=== PATIENT | male | born 1950 ===

== ENCOUNTER 2017-10-29 19:01 | Emergency (ER) | payer MEDICARE ==
[2017-10-29 19:02] VITALS: BMI 26.6
[2017-10-29 19:27] VITALS: RESP 16; TEMP 98.5
[2017-10-29] MEDS ORDERED: Albuterol-Ipratrop 3 mg / 0.5 (3 ml) UD IH STA (19:34)
[2017-10-29] MEDS ORDERED: Promethazine 6.25 MG/5 ML CUP PO STA (19:35)
--- NOTE | 2017-10-29 19:39 | ED PDOC ---
Arrival/HPI - General Chief Complaint: Cough, Cold, Congestion Time Seen by Provider: 10/29/17 19:25 Historian: Patient - History of Present Illness Narrative History of Present Illness (Text): 67M c/o non-productive cough since last night. similar sx in august and pmd rx "biaxin" at that time which he took last night and today bs he had some left over. took dayquill without relief. Time/Duration: 24 hours Symptom Course: Unchanged Activities at Onset: Rest Context: Home Past Medical History - Provider Review Nursing Documentation Reviewed: Yes - Cardiac Hx Hypertension: Yes - Gastrointestinal Hx Gastrointestinal Ulcer: Yes - Psychiatric Hx Substance Use: No - Surgical History Hx Appendectomy: Yes Family/Social History - Physician Review Nursing Documentation Reviewed: Yes Family/Social History: Other (nc) Smoking Status: Former Smoker Hx Alcohol Use: No Hx Substance Use: No Allergies/Home Meds Allergies/Adverse Reactions: Allergies iodine Allergy (Mild, Verified 01/12/17 13:24) ANGIOEDEMA Penicillins Allergy (Mild, Verified 01/12/17 13:24) ANGIOEDEMA Home Medications: Home Meds Medication Instructions Recorded Confirmed Aspirin [Adult Low Dose Aspirin EC] 81 mg PO DAILY 01/12/17 01/12/17 Celecoxib [celeBREX] 200 mg PO DAILY 01/12/17 01/12/17 Clorazepate Dipotassium [Tranxene 7.5 mg PO DAILY 01/12/17 01/12/17 T-Tab] Cyclobenzaprine [Flexeril] 5 mg PO DAILY 01/12/17 01/12/17 Galantamine HBr [Galantamine HBR] 4 mg PO DAILY 01/12/17 01/12/17 Metoprolol Succinate [Metoprolol 50 mg PO DAILY 01/12/17 01/12/17 Succinate] Omeprazole [Omeprazole] 40 mg PO DAILY 01/12/17 01/12/17 Oxycodone HCl [Roxicodone] 15 mg PO DAILY 01/12/17 01/12/17 Pravastatin Sodium [Pravachol] 20 mg PO DAILY 01/12/17 01/12/17 Review of Systems - Physician Review All systems were reviewed & negative as marked: Yes - Review of Systems Constitutional: absent: Fatigue, Fevers Respiratory: Cough (chest hurts only w cough). absent: SOB, Sputum Gastrointestinal: absent: Abdominal Pain, Diarrhea, Vomiting Physical Exam Vital Signs Reviewed: Yes Vital Signs Temp Pulse Resp BP Pulse Ox 10/29/17 19:23 98.5 F 82 16 132/78 96 Appearance: Positive for: Well-Appearing, Non-Toxic, Comfortable Pain Distress: None Mental Status: Positive for: Alert and Oriented X 3 - Systems Exam Head: Present: Atraumatic Pupils: Present: PERRL Mouth: Present: Moist Mucous Membranes Respiratory/Chest: Present: Clear to Auscultation. No: Respiratory Distress, Accessory Muscle Use Cardiovascular: Present: Regular Rate and Rhythm Abdomen: No: Tenderness, Distention Lower Extremity: No: Edema Neurological: Present: GCS=15 Skin: Present: Warm, Dry Psychiatric: Present: Alert, Oriented x 3 Medical Decision Making ED Course and Treatment: 10/29/17 20:55 pt resting quietly, appears well, no distress. disc results, plan for rx, f/u, and rtr. - Lab Interpretations Lab Results: 10/29/17 20:15 10/29/17 20:15 Lab Results 10/29/17 20:15: Sodium 141, Potassium 3.6, Chloride 107, Carbon Dioxide 23, Anion Gap 14, BUN 10, Creatinine 1.3, Est GFR ( Amer) > 60, Est GFR (Non- Af Amer) 55, Random Glucose 97, Calcium 8.9, Total Bilirubin 0.6, AST 42, ALT 46 , Alkaline Phosphatase 50, Total Protein 7.7, Albumin 4.1, Globulin 3.6, Albumin /Globulin Ratio 1.2 10/29/17 20:15: WBC 10.1 D, RBC 6.81 H, Hgb 14.4, Hct 45.0, MCV 66.1 L, MCH 21.1 L, MCHC 32.0, RDW 15.1 H, Plt Count 120, Gran % 63.9, Lymph % (Auto) 22.1, [place] % (Auto) 10.2 H, Eos % (Auto) 3.4, Baso % (Auto) 0.4, Gran # 6.47, Lymph # 2.2, [place] # 1.0 H, Eos # 0.3, Baso # 0.04 I have reviewed the lab results: Yes - RAD Interpretation Radiology Orders: 10/29/17 19:34 CHEST PORTABLE [RAD] Stat - Medication Orders Current Medication Orders: Discontinued Medications Albuterol/Ipratropium (Duoneb 3 Mg/0.5 Mg (3 Ml) Ud) 3 ml IH ONCE STA Stop: 10/29/17 19:35 Last Admin: 10/29/17 20:00 Dose: 3 ml Ibuprofen (Motrin Tab) 600 mg PO STAT STA Stop: 10/29/17 19:35 Last Admin: 10/29/17 20:00 Dose: 600 mg MAR Pain/Vitals Document 10/29/17 20:00 OCS (Rec: 10/29/17 20:24 OCS [id number]) Pain Reassessment Is This A Pain ReAssessment? No Sleep Is patient sleeping during reassessment? No Presence of Pain Presence of Pain Yes Pain Scale Used Pain Scale Used Numeric Location Left, Right or Bilateral Bilateral Pain Location Body Site Chest Description Constant Promethazine HCl (Phenergan Syrup) 6.25 mg PO STAT STA Stop: 10/29/17 19:36 Last Admin: 10/29/17 20:00 Dose: 6.25 mg Disposition/Present on Arrival - Present on Arrival Any Indicators Present on Arrival: No History of DVT/PE: No History of Uncontrolled Diabetes: No Urinary Catheter: No History of Decub. Ulcer: No History Surgical Site Infection Following: None - Disposition Have Diagnosis and Disposition been Completed?: Yes Diagnosis: Community acquired pneumonia Disposition: HOME/ ROUTINE Disposition Time: 20:56 Patient Problems: Current Active Problems Problem Status Onset Community acquired pneumonia Acute Condition: STABLE Discharge Instructions (ExitCare): Community Acquired Pneumonia (ED) Additional Instructions: Please follow up with your doctor. Return to the ER for any worsening symptoms or for any other concerns. Prescriptions: levoFLOXacin [Levaquin] 750 mg PO DAILY #5 tab Promethazine [Phenergan Syrup] 6.25 mg PO Q12H PRN #50 ml PRN Reason: Cough Forms: [employer] (Yoruba)
[2017-10-29 20:27] LABS: BASO # 0.04 K/mm3 (0.0-2.0); BASO % 0.4 % (0.0-3.0); EOS # 0.3 (0.0-0.7); EOS % 3.4 % (1.5-5.0); GRAN # 6.47 (1.4-6.5); GRAN % 63.9 % (50.0-68.0); LYMPH # 2.2 (1.2-3.4); LYMPH % 22.1 % (22.0-35.0); MEAN CELL VOLUME 66.1 fl (80.0-105.0); MEAN CORPUSCULAR HEMOGLOBIN 21.1 pg (25.0-35.0); MONO % 10.2 % (1.0-6.0); PLATELET COUNT 120 10^3/uL (120.0-450.0); RED CELL DISTRIBUTION WIDTH 15.1 % (11.5-14.5); WHITE BLOOD COUNT 10.1 10^3/ul (4.5-11.0)
[2017-10-29 20:40] LABS: ALB/GLOB RATIO 1.2 (1.1-1.8); ALKALINE PHOSPHATASE 50 U/L (38-126); ALT/SGPT 46 U/L (7-56); AST/SGOT 42 U/L (17-59); BILIRUBIN,TOTAL 0.6 mg/dL (0.2-1.3); BLOOD UREA NITROGEN 10 mg/dL (7-21); CALCIUM 8.9 mg/dL (8.4-10.5); CARBON DIOXIDE 23 mmol/L (21-33); CHLORIDE 107 mmol/L (98-107); GFR AFRICAN-AMERICAN > 60; GLUCOSE,RANDOM 97 mg/dL (70-110); POTASSIUM 3.6 mmol/L (3.6-5.0); SODIUM 141 mmol/L (132-148); TOTAL PROTEIN 7.7 g/dL (5.8-8.3)
[2017-10-29 21:46] VITALS: BP 130/82; PULSE 80; O2SAT 100
--- NOTE | 2017-10-30 09:03 | RAD ---
HISTORY: cough COMPARISON: 01/12/2017 FINDINGS: LUNGS: There is a minimal patchy infiltrate in the right lower lobe PLEURA: No significant pleural effusion identified, no pneumothorax apparent. CARDIOVASCULAR: Normal. OSSEOUS STRUCTURES: No significant abnormalities. VISUALIZED UPPER ABDOMEN: Normal. OTHER FINDINGS: None. IMPRESSION: Minimal patchy infiltrate in the right lower lobe
== END 2017-10-29 21:20 | disposition home or self-care (01) ==
LOC: ED 19:01
DX: J18.9 Pneumonia, unspecified organism (principal); I10 Essential (primary) hypertension; Z87.891 Personal history of nicotine dependence

== ENCOUNTER 2018-04-30 03:20 | Emergency (ER) | payer MEDICARE ==
[2018-04-30 03:20] VITALS: BMI 26.6
--- NOTE | 2018-04-30 04:57 | ED PDOC ---
Arrival/HPI - General Chief Complaint: Shortness Of Breath Time Seen by Provider: 04/30/18 04:49 Historian: Patient, Spouse - History of Present Illness Narrative History of Present Illness (Text): 04/30/18 04:57 Estevan Gupta is a 67 year old male, whose past medical history includes hypertension and hyperlipidemia, who presents to the Emergency department accompanied by spouse status post near-syncopal episode. Patient states he was coughing at home when he began feeling dizzy and short of breath. Patient states he felt near-syncopal and fell to the ground. notes patient sustained a laceration to the left ear after he hit a side table while falling. Patient denies any fever, chills, nausea, vomiting, diarrhea, urinary symptoms, back pain, neck pain, headache, focal deficits, or any other complaints. Symptom Onset: Gradual Symptom Course: Unchanged Activities at Onset: Light Context: Home Past Medical History - Provider Review Nursing Documentation Reviewed: Yes - Infectious Disease Hx of Infectious Diseases: None - Cardiac Hx Hypertension: Yes - Gastrointestinal Hx Gastrointestinal Ulcer: Yes - Psychiatric Hx Substance Use: No - Surgical History Hx Appendectomy: Yes - Anesthesia Hx Anesthesia: No Family/Social History - Physician Review Nursing Documentation Reviewed: Yes Family/Social History: Unknown Family HX Smoking Status: Former Smoker Hx Alcohol Use: No Hx Substance Use: No Allergies/Home Meds Allergies/Adverse Reactions: Allergies iodine Allergy (Mild, Verified 01/12/17 13:24) ANGIOEDEMA Penicillins Allergy (Mild, Verified 01/12/17 13:24) ANGIOEDEMA Home Medications: Home Meds Medication Instructions Recorded Confirmed Aspirin [Adult Low Dose Aspirin EC] 81 mg PO DAILY 01/12/17 01/12/17 Celecoxib [celeBREX] 200 mg PO DAILY 01/12/17 01/12/17 Clorazepate Dipotassium [Tranxene 7.5 mg PO DAILY 01/12/17 01/12/17 T-Tab] Cyclobenzaprine [Flexeril] 5 mg PO DAILY 01/12/17 01/12/17 Galantamine HBr [Galantamine HBR] 4 mg PO DAILY 01/12/17 01/12/17 Metoprolol Succinate [Metoprolol 50 mg PO DAILY 01/12/17 01/12/17 Succinate] Omeprazole [Omeprazole] 40 mg PO DAILY 01/12/17 01/12/17 Oxycodone HCl [Roxicodone] 15 mg PO DAILY 01/12/17 01/12/17 Pravastatin Sodium [Pravachol] 20 mg PO DAILY 01/12/17 01/12/17 Review of Systems - Physician Review All systems were reviewed & negative as marked: Yes - Review of Systems Constitutional: Normal. absent: Fevers Eyes: Normal ENT: Normal Respiratory: SOB, Cough Cardiovascular: Other (+near-syncope) Gastrointestinal: Normal. absent: Abdominal Pain, Diarrhea, Nausea, Vomiting Genitourinary Male: Normal. absent: Dysuria, Frequency, Hematuria, Urinary Output Changes Musculoskeletal: Normal. absent: Back Pain, Neck Pain Skin: Normal. absent: Rash Neurological: Dizziness Endocrine: Normal Hemo/Lymphatic: Normal Psychiatric: Normal Physical Exam Vital Signs Reviewed: Yes Vital Signs Temp Pulse Resp BP Pulse Ox 04/30/18 06:40 71 17 118/82 96 04/30/18 04:30 18 96 04/30/18 04:28 98.9 F 82 18 137/79 96 Temperature: Afebrile Blood Pressure: Normal Pulse: Regular Respiratory Rate: Normal Appearance: Positive for: Well-Appearing, Non-Toxic, Comfortable Pain Distress: None Mental Status: Positive for: Alert and Oriented X 3 - Systems Exam Head: Present: Atraumatic, Normocephalic Pupils: Present: PERRL Extroacular Muscles: Present: EOMI Conjunctiva: Present: Normal Ears: Present: NORMAL TM, Normal Canal, Other (0.5 cm superficial laceration to left outer ear auricle). No: Erythema, TM Bulging, Fluid Mouth: Present: Moist Mucous Membranes Pharnyx: Present: Normal. No: ERYTHEMA, EXUDATE, TONSILS ENLARGED, Peritonsilar Swelling, Uvular Deviation, Muffled/Hoarse Voice, [place], Soft Palate/Uvular Edema Nose (External): Present: Atraumatic Nose (Internal): Present: Normal Inspection. No: No Active Bleeding, Moist, Engorged, Edematous, Boggy, Clear Mucous, Rhinorrhea, Purulent Mucous, Septal Deviation, Septal Hematoma, Epistaxis, Other Neck: Present: Normal Range of Motion. No: Meningeal Signs, MIDLINE TENDERNESS , Paraspinal Tenderness Respiratory/Chest: Present: Clear to Auscultation, Good Air Exchange. No: Respiratory Distress, Accessory Muscle Use Cardiovascular: Present: Regular Rate and Rhythm, Normal S1, S2. No: Murmurs Abdomen: No: Tenderness, Distention, Peritoneal Signs Back: Present: Normal Inspection. No: CVA Tenderness, Midline Tenderness, Paraspinal Tenderness Upper Extremity: Present: Normal ROM, NORMAL PULSES, Neurovascularly Intact, Capillary Refill < 2s, Other (Small abrasion to left shoulder). No: Cyanosis, Edema, Tenderness, Swelling, Temperature Abnormalties, Deformity Lower Extremity: Present: Normal Inspection. No: Edema Neurological: Present: GCS=15, CN II-XII Intact, Speech Normal Skin: Present: Warm, Dry, Normal Color. No: Rashes Psychiatric: Present: Alert, Oriented x 3, Normal Insight, Normal Concentration Medical Decision Making ED Course and Treatment: 04/30/18 04:57 Impression: 67 year old male complaining of near-syncope and dizziness. Plan: -- CT Head w/o contrast -- EKG -- Chest X-ray -- Labs, cardiac enzymes -- Reassess and disposition Progress Notes: Reviewed EKG, NSR at 100 bpm. Inferiorm infarct. Inferior infarct. Non-specific ST/T wave changes. 04/30/18 06:10 Chest X-ray reviewed, shows no acute processes. 04/30/18 06:[address] Juan, who is aware and agrees with plan. Accepts pt in to his service. Pt will go to remote telemetry observation for near- syncope, ear laceration, and head injury. 04/30/18 06:36 PROCEDURE: LACERATION REPAIR Performed by the emergency provider Location: left outer ear auricle Length: 0.5 cm Description: clean wound edges, no foreign bodies Distal CMS: Normal. No deficits. Neurovascularly intact. Preparation: The wound was cleaned with NS and [place]. The area was prepped and draped in the usual sterile fashion. Exploration: The wound was explored and no foreign bodies were found. Procedure: The wound was closed with Dermabond. There was good approximation. Post-Procedure: Good closure and hemostasis. The patient tolerated the procedure well and there were no complications. CSM remains intact. Post procedure dressing applied. - Lab Interpretations Lab Results: 04/30/18 05:15 04/30/18 05:15 Lab Results 04/30/18 05:15: WBC 8.1, RBC 7.21 H, Hgb 15.4, Hct 47.2, MCV 65.5 L, MCH 21.4 L , MCHC 32.6, RDW 15.1 H, Plt Count 132, MPV 9.7 04/30/18 05:15: Sodium 143, Potassium 3.8, Chloride 105, Carbon Dioxide 26, Anion Gap 16, BUN 14, Creatinine 1.2, Est GFR ( Amer) > 60, Est GFR (Non- Af Amer) > 60, Random Glucose 120 H, Calcium 8.5, Total Bilirubin 0.8, AST 33, ALT 45, Alkaline Phosphatase 50, Lactate Dehydrogenase 477, Total Creatine Kinase 144, Troponin I < 0.01, Total Protein 7.8, Albumin 4.3, Globulin 3.6, Albumin/Globulin Ratio 1.2 04/30/18 05:15: PT 11.3, INR 0.99, APTT 35.8 I have reviewed the lab results: Yes - RAD Interpretation Radiology Orders: 04/30/18 04:59 HEAD W/O CONTRAST [CT] Stat CHEST PORTABLE [RAD] Stat Lathe Turner: ED Physician, Radiologist - EKG Interpretation Interpreted by ED Physician: Yes - Scribe Statement The provider has reviewed the documentation as recorded by the Brisa Velazquez Provider Scribe Attestation: All medical record entries made by the Scribsanti were at my direction and personally dictated by me. I have reviewed the chart and agree that the record accurately reflects my personal performance of the history, physical exam, medical decision making, and the department course for this patient. I have also personally directed, reviewed, and agree with the discharge instructions and disposition. Disposition/Present on Arrival - Present on Arrival Any Indicators Present on Arrival: No History of DVT/PE: No History of Uncontrolled Diabetes: No Urinary Catheter: No History of Decub. Ulcer: No History Surgical Site Infection Following: None - Disposition Have Diagnosis and Disposition been Completed?: Yes Diagnosis: Near syncope, Laceration of ear Disposition: HOSPITALIZED Disposition Time: 06:39 Patient Problems: Current Active Problems Problem Status Onset Laceration of ear Acute Near syncope Acute Condition: STABLE
[2018-04-30 05:37] LABS: HEMOGLOBIN 15.4 g/dL (14.0-18.0); MEAN CELL VOLUME 65.5 fl (80.0-105.0); MEAN CORPUSCULAR HEMOGLOBIN 21.4 pg (25.0-35.0); MEAN CORPUSCULAR HGB CONC 32.6 g/dl (31.0-37.0); MEAN PLATELET VOLUME 9.7 fl (7.0-11.0); RBC 7.21 10^6/uL (3.5-6.1); RED CELL DISTRIBUTION WIDTH 15.1 % (11.5-14.5); WHITE BLOOD COUNT 8.1 10^3/ul (4.5-11.0)
[2018-04-30 05:43] LABS: ALB/GLOB RATIO 1.2 (1.1-1.8); ALBUMIN 4.3 g/dL (3.0-4.8); ALT/SGPT 45 U/L (7-56); AST/SGOT 33 U/L (17-59); BLOOD UREA NITROGEN 14 mg/dL (7-21); CALCIUM 8.5 mg/dL (8.4-10.5); GFR AFRICAN-AMERICAN > 60; GFR NON-AFRICAN AMERICAN > 60
[2018-04-30 05:50] LABS: INR 0.99 (0.93-1.08); PARTIAL THROMBOPLASTIN TIME 35.8 Seconds (25.1-36.5); PROTHROMBIN TIME 11.3 SECONDS (9.4-12.5)
[2018-04-30 05:54] LABS: TROPONIN I < 0.01 ng/mL
[2018-04-30 07:19] VITALS: TEMP 98.8
[2018-04-30 07:49] VITALS: BP 150/89; PULSE 98; RESP 17; O2SAT 97
--- NOTE | 2018-04-30 09:39 | RAD ---
HISTORY: dizzy COMPARISON: 10/29/2017 FINDINGS: LUNGS: There is a 2 cm nodule adjacent to the left hilum in the left upper lobe. CT is recommended for further evaluation PLEURA: No significant pleural effusion identified, no pneumothorax apparent. CARDIOVASCULAR: Normal. OSSEOUS STRUCTURES: No significant abnormalities. VISUALIZED UPPER ABDOMEN: Normal. OTHER FINDINGS: None. IMPRESSION: There is a 2 cm nodule adjacent to the left hilum in the left upper lobe. CT is recommended for further evaluation
--- NOTE | 2018-04-30 10:06 | CT ---
PROCEDURE: CT HEAD WITHOUT CONTRAST. HISTORY: near syncope COMPARISON: None available. TECHNIQUE: Axial computed tomography images were obtained through the head/brain without intravenous contrast. Radiation dose: Total exam DLP = mGy-cm. This CT exam was performed using one or more of the following dose reduction techniques: Automated exposure control, adjustment of the mA and/or kV according to patient size, and/or use of iterative reconstruction technique. FINDINGS: HEMORRHAGE: No intracranial hemorrhage. BRAIN: No mass effect or edema. No atrophy or chronic microvascular ischemic changes. VENTRICLES: Unremarkable. No hydrocephalus. CALVARIUM: Unremarkable. PARANASAL SINUSES: Unremarkable as visualized. No significant inflammatory changes. MASTOID AIR CELLS: Unremarkable as visualized. No inflammatory changes. OTHER FINDINGS: None. IMPRESSION: Normal CT of the Head.
--- NOTE | 2018-04-30 21:32 | CARD ---
APPROVED REPORT EKG Measurement Heart [id number] <Conclusion> Normal sinus rhythm Inferior infarct, age undetermined Abnormal ECG
== END 2018-04-30 07:48 | disposition left against medical advice (07) ==
LOC: ED 03:20 → ERH 06:35 → UNDOADMOB 06:35 → ERH 07:14
DX: S01.312A Laceration without foreign body of left ear, initial encounter (principal); W01.190A Fall on same level from slipping, tripping and stumbling with subsequent striking against furniture, initial encounter; Y92.9 Unspecified place or not applicable; R55 Syncope and collapse; I10 Essential (primary) hypertension; E78.5 Hyperlipidemia, unspecified; Z87.891 Personal history of nicotine dependence

== ENCOUNTER 2018-07-27 10:29 | Emergency (ER) | payer MEDICARE ==
[2018-07-27 10:54] VITALS: BMI 26.7
[2018-07-27 11:07] VITALS: RESP 18
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
--- NOTE | 2018-07-27 12:15 | CT ---
Date of service: 07/27/2018 PROCEDURE: CT HEAD WITHOUT CONTRAST. HISTORY: Headache COMPARISON: 04/30/2018. TECHNIQUE: Axial computed tomography images were obtained through the head/brain without intravenous contrast. Radiation dose: Total exam DLP = 829.70 mGy-cm. This CT exam was performed using one or more of the following dose reduction techniques: Automated exposure control, adjustment of the mA and/or kV according to patient size, and/or use of iterative reconstruction technique. FINDINGS: HEMORRHAGE: No intracranial hemorrhage. BRAIN: There are mild chronic microangiopathic changes. There is no mass, mass effect or abnormal extra-axial fluid collection. There is no territorial infarction. The midline sagittal structures are normal. VENTRICLES: There is mild age-related global parenchymal volume loss and proportionate enlargement of the ventricles and cortical sulci. CALVARIUM: The skull base and calvarium are normal. PARANASAL SINUSES: Predominantly clear. MASTOID AIR CELLS: Predominantly clear. OTHER FINDINGS: None. IMPRESSION: No acute intracranial abnormality. Mild chronic microangiopathic changes and mild age-related global parenchymal.
[2018-07-27 13:40] LABS: BASO # 0.04 K/mm3 (0.0-2.0); BASO % 0.6 % (0.0-3.0); EOS # 0.2 (0.0-0.7); EOS % 3.1 % (1.5-5.0); GRAN # 3.66 (1.4-6.5); GRAN % 57.1 % (50.0-68.0); HEMOGLOBIN 15.9 g/dL (14.0-18.0); LYMPH % 31.6 % (22.0-35.0); MEAN CELL VOLUME 66.4 fl (80.0-105.0); MEAN CORPUSCULAR HEMOGLOBIN 21.3 pg (25.0-35.0); MEAN CORPUSCULAR HGB CONC 32.1 g/dl (31.0-37.0); MONO # 0.5 (0.1-0.6); MONO % 7.6 % (1.0-6.0); PLATELET COUNT 139 10^3/uL (120.0-450.0); RBC 7.45 10^6/uL (3.5-6.1); RED CELL DISTRIBUTION WIDTH 15.1 % (11.5-14.5); WHITE BLOOD COUNT 6.4 10^3/ul (4.5-11.0)
[2018-07-27 13:50] LABS: ALB/GLOB RATIO 1.3 (1.1-1.8); ALBUMIN 4.5 g/dL (3.0-4.8); ALT/SGPT 42 U/L (7-56); AST/SGOT 35 U/L (17-59); BLOOD UREA NITROGEN 15 mg/dL (7-21); CALCIUM 9.2 mg/dL (8.4-10.5); GFR NON-AFRICAN AMERICAN > 60
[2018-07-27 14:01] LABS: TROPONIN I 0.02 ng/mL
[2018-07-27] MEDS ORDERED: Apap-Butalbital-Caffeine 325-50-40mg Tab PO STA (14:24)
[2018-07-27 14:25] LABS: URINE BILIRUBIN NEGATIVE (NEGATIVE); URINE BLOOD NEGATIVE (NEGATIVE); URINE GLUCOSE (UA) NEGATIVE (NEGATIVE); URINE LEUKOCYTE ESTERASE NEGATIVE Leu/uL (NEGATIVE); URINE PROTEIN NEGATIVE mg/dL (<30 mg/dL); URINE UROBILINOGEN 0.2 E.U./dL (<1 E.U./dL)
[2018-07-27] MEDS ORDERED: DiphenhydrAMINE 50 mg/ml Inj IVP STA (14:26)
[2018-07-27 14:27] LABS: URINE APPEARANCE CLEAR (CLEAR); URINE COLOR LIGHT YELLOW (YELLOW)
[2018-07-27 15:25] VITALS: BP 139/78; PULSE 72; TEMP 98.7; O2SAT 99
== END 2018-07-27 15:30 | disposition home or self-care (01) ==
LOC: ED 10:29
DX: G44.209 Tension-type headache, unspecified, not intractable (principal); E78.5 Hyperlipidemia, unspecified; I10 Essential (primary) hypertension; Z87.891 Personal history of nicotine dependence
CPT/HCPCS: 70450; 80053; 81003; 83735; 84484; 85025; 96374; 96375; 99285; J1200; J1885; J2765